=== PATIENT | female | born 1980 | race Caucasian/White ===

== ENCOUNTER 2022-04-01 14:44 | Outpatient (CLI) | payer BC, SELFPAY ==
[2022-04-01 16:16] LABS: SARS-CoV-2 Ag Positive (Negative)
[2022-04-01 16:29] LABS: SARS-CoV-2 RNA PCR Positive (Negative)
== END 2022-04-01 14:45 | disposition home or self-care (01) ==
LOC: CHSLAB 14:54
PROVIDERS: PCP Physician Assistant; Visit Provider Family Medicine
DX: U07.1 COVID-19 (principal)
CPT/HCPCS: 87426; C9803; U0003; U0005

== ENCOUNTER 2024-03-21 11:02 | Outpatient (CLI) | payer BC, SELFPAY ==
[2024-03-21 11:16] LABS: Hematocrit 41.5 % (37.0-47.0); Hemoglobin 13.8 g/dL (12.0-15.0); Mean Corpuscular HGB Conc 33.3 g/dl (32-36); Mean Corpuscular Hemoglobin 31.1 pg (26-34); Mean Corpuscular Volume 93.5 fl (80-100); Mean Platelet Volume 10.3 fl (7.4-10.4); Platelet Count Result 343 k/mm3 (150-375); Red Blood Count 4.44 M/mm3 (4.2-5.4); Red Cell Distribution Width 12.2 % (11.5-14.5); White Blood Count 7.6 K/mm3 (4.5-10.0)
[2024-03-21 11:30] LABS: Alanine Aminotransferase 16 U/L (6-35); Albumin Level 4.6 g/dL (3.5-5.1); Alkaline Phosphatase 47 U/L (38-126); Anion Gap 3 mmol/L (4-12); Aspartate Amino Transferase 22 U/L (14-36); Bilirubin,Total 0.6 mg/dL (0.2-1.3); Blood Urea Nitrogen 12 mg/dL (7-17); CRP < 0.5 mg/dL (<1.0); Calcium 8.9 mg/dL (8.4-10.2); Carbon Dioxide 25 mmol/L (22-30); Chloride 107 mmol/L (98-107); Estimated Glomerular Filt Rate > 60; Glucose 91 mg/dL (65-110); Potassium 4.1 mmol/L (3.4-5.0); Sodium 135 mmol/L (137-145)
[2024-03-21 15:01] LABS: Erythrocyte Sedimentation Rate 13 mm/hr (0-20)
[2024-03-24 01:44] LABS: Immunoglobulin A 165 mg/dL (47-310); TTG IGA AB <1.0 U/mL
== END 2024-03-21 11:03 | disposition home or self-care (01) ==
LOC: ANHLAB 11:03
PROVIDERS: PCP Physician Assistant; Visit Provider Nurse Practitioner Family
DX: K76.0 Fatty (change of) liver, not elsewhere classified (principal); R12 Heartburn; R14.0 Abdominal distension (gaseous)
CPT/HCPCS: 36415; 80053; 82784; 85027; 85652; 86140; 86364

== ENCOUNTER 2024-03-27 11:16 | Outpatient (CLI) | payer BC, SELFPAY ==
[2024-03-31 15:38] LABS: Calprotectin, Stool 15 mcg/g
[2024-03-31 21:09] LABS: Pancreatic Elastase, Stool >500 mcg/g
== END 2024-03-27 11:17 | disposition home or self-care (01) ==
PROVIDERS: PCP Physician Assistant; Visit Provider Nurse Practitioner Family
DX: K76.0 Fatty (change of) liver, not elsewhere classified (principal); R14.0 Abdominal distension (gaseous); R12 Heartburn
CPT/HCPCS: 82653; 83993

== ENCOUNTER 2024-04-13 08:47 | Outpatient (CLI) | payer BC, SELFPAY ==
--- NOTE | ~2024-04-13 | US_ITS ---
Limited Abdominal Sonogram: Real-time sonographic imaging of the right upper quadrant was performed. Clinical History: Fatty liver Findings: The liver appears normal with no evidence of mass lesion or bile duct dilatation. Main por jessy vein demonstrates normal direction of flow. The gallbladder is well distended, and appears normal with no evidence of gallstone or wall thickening. The common bile duct measures 2 mm. The visualize d pancreas, aorta, and IVC are unremarkable. Impression: No significant abnormality seen. Reviewed, dictated and finalized at location . Impression: No significant abnormality seen.
== END 2024-04-13 08:48 | disposition home or self-care (01) ==
LOC: ANHIMG 08:49
PROVIDERS: PCP Physician Assistant; Visit Provider Nurse Practitioner Family
DX: K76.0 Fatty (change of) liver, not elsewhere classified (principal)
CPT/HCPCS: 76705

== ENCOUNTER 2024-05-29 01:34 | Day surgery (SDC) | payer BC, SELFPAY ==
[2024-05-15 11:11] VITALS: BMI 33.8
[2024-05-29 10:46] VITALS: BP 120/61; PULSE 57; RESP 16; TEMP 36.1; O2SAT 99
[2024-05-29] MEDS: LACTATED RINGERS 1,000 ML 150 ML IV CONT (10:51)
--- NOTE | 2024-05-29 11:19 | P.PNAN_ITS ---
Anes - Initial Pre Proc Eval Procedure: Operation Date: 05/29/24 15:00 Proposed Procedures p Esophagogastroduodenoscopy - Aakash Valadez MD Date/Time: 05/29/24 11:19 Surgeon: Aakash Valadez MD Pre Op Diagnosis: Heartburn, abdominal distension(gaseous) Patient Data Age: 43 Gender: F Height: 1.57 m Weight: 83.7 kg Last Vital Signs Temp 96.9 F L 05/29/24 10:46 Pulse 57 L 05/29/24 10:46 Resp 16 05/29/24 10:46 BP 120/61 05/29/24 10:46 Pulse Ox 99 05/29/24 10:46 O2 Del Method Room Air 05/29/24 10:46 Allergies Allergy/AdvReac Type Severity Reaction Status Date / Time No Known Allergies Allergy Verified 05/29/24 10:44 Home Medications Medication Instructions Recorded Confirmed Type No Home Medications 03/21/24 05/29/24 History Patient hx anesthesia problems: none Family hx anesthesia problems: none Results Review: All pre-operative results and documents have been reviewed as part of the pre- operative evaluation. [facility] Past Medical History Medical History (Updated 03/21/24 @ 10:56 by Bertha Valero APN-Tab) Abdominal bloating Fatty liver Heartburn Social History Social History Smoking status: Former smoker Alcohol intake: never Substance use: current Substance use type: marijuana Living arrangements: with family Spiritual care concerns: No Anes - Eval Final PreProcedure Day of Procedure 05/29/24 11:19 Patient weight: obese Heart: regular rate and rhythm Lungs: clear to auscultation Airway: Mallampati scale class II Neurological: alert and oriented Last oral intake: >/= 8 hours ASA classification: II Emergent: no Anesthetic plan: proceed Anesthesia type and monitoring: general GIVS and standard monitoring Results Review: All pre-operative results and documents have been reviewed as part of the pre- operative evaluation. Informed Consent: The patient's anesthetic plan and its attendant risks and benefits were discussed with the patient/family/POA. Questions were solicited and answers provided to the satisfaction of the patient/family/POA.
--- NOTE | 2024-05-29 11:34 | PM.HPGS ---
History of Present Illness History of Present Illness Consent: Risks, benefits, and alternatives have been discussed and questions answered. Patient agrees to proceed with procedure. Chief complaint: Heartburn, abdominal distension(gaseous) Narrative: Pooja Ragsdale is a 43 year old female here for egd, h/o bloating and gerd on prilosec OTC, stool calprotectin and elastase normal, inflammatory markers normal, negative serology for celiac. Review of Systems Review of Systems: All systems reviewed & are unremarkable except as noted in HPI and below [facility] Past Medical History Medical History (Updated 03/21/24 @ 10:56 by WONG Kuo) Abdominal bloating Fatty liver Heartburn Social History Social History Smoking status: Former smoker Alcohol intake: never Substance use: current Substance use type: marijuana Living arrangements: with family Spiritual care concerns: No Meds Home Medications and Allergies Home Medications Medication Instructions Recorded Confirmed Type No Home Medications 03/21/24 05/29/24 History Allergies Allergy/AdvReac Type Severity Reaction Status Date / Time No Known Allergies Allergy Verified 05/29/24 10:44 Vital Signs Vital Signs - 24 hr 05/29/24 10:46 Temperature 96.9 F L Pulse Rate 57 L Respiratory Rate 16 Blood Pressure 120/61 Pulse Oximetry 99 Oxygen Delivery Room Air Exam Const: General: comfortable and no acute distress HENMT: Face/Nose/Sinus: Normal nares present Eyes: General: appearance normal, both eyes and all related structures Neck: Neck: no JVD Resp: Auscultation: clear to auscultation bilaterally Cardio: Rate: regular rate Rhythm: regular rhythm GI: Inspection: non-distended GI Palp: Yes Soft to palpation Skin: General skin exam: normal color Neuro: General: gait normal Speech: normal speech Extrem: General: normal to inspection Psych: Mental Status: mental status grossly normal Assessment and Plan Assessment and plan (1) Heartburn: Code(s): R12 - Heartburn Status: Acute Assessment and Plan: egd with bx (2) Abdominal bloating: Code(s): R14.0 - Abdominal distension (gaseous) Status: Acute
[2024-05-29 11:46] VITALS: BP 95/60; PULSE 57; RESP 24; O2SAT 99
[2024-05-29 11:56] VITALS: BP 107/65; PULSE 51; RESP 19; O2SAT 100
[2024-05-29 12:06] VITALS: BP 105/64; PULSE 52; RESP 21; O2SAT 100
== END 2024-05-29 12:10 | disposition home or self-care (01) ==
PROVIDERS: PCP Physician Assistant; Referring Provider Nurse Practitioner Family; Visit Provider Internal Medicine Gastroenterology
PROC: 0DJ08ZZ Inspection of Upper Intestinal Tract, Via Natural or Artificial Opening Endoscopic (ICD-10-PCS; CPT 43235; principal; 2024-05-29 15:00)
DX: K29.70 Gastritis, unspecified, without bleeding (principal); Z87.891 Personal history of nicotine dependence; E66.9 Obesity, unspecified; Z68.33 Body mass index [BMI] 33.0-33.9, adult
CPT/HCPCS: 43239; 88305; J2704; J7120